=== PATIENT | male | born 1990 | race Caucasian/White ===

== ENCOUNTER 2021-09-29 09:55 | Emergency (ER) | payer OTHER ==
[2021-09-29 10:02] VITALS: BP 123/67; PULSE 82; RESP 18; TEMP 97.8
[2021-09-29] MEDS ORDERED: ORPHENADRINE 30 MG/ML 2 ML VIAL IM STA (10:13)
[2021-09-29] MEDS ORDERED: HYDROmorphone 1 MG/ML 1 ML SYRINGE IM STA (10:14)
[2021-09-29] MEDS ORDERED: KETOROLAC 15 MG/ML 1 ML VIAL IM STA (10:14)
--- NOTE | 2021-09-29 10:17 | ED ---
General Adult HPI - General Chief complaint: Back Pain/Injury Stated complaint: Back Pain Time Seen by Provider: 09/29/21 10:05 Source: patient, family, EMS, RN notes reviewed Mode of arrival: EMS Limitations: no limitations - History of Present Illness Initial comments: Patient is a pleasant 31-year-old male presenting to the emergency Department with complaints of low back pain. Onset of symptoms while walking into [place]. Patient was turning with significant increase in pain. Discomfort is lower back, more in the right side and does radiate down the leg. No incontinence or retention of bowel or bladder. Patient does have history of similar symptoms twice previously and milder symptoms several other times. No loss of sensation. No weakness. - Related Data Home Medications Medication Instructions Recorded Confirmed Dicyclomine [Bentyl] 10 mg PO BID PRN 04/02/16 04/02/16 Ondansetron [Zofran] 4 mg PO Q12HR PRN 04/02/16 04/02/16 Previous Rx's Medication Instructions Recorded Dicyclomine HCl [Bentyl] 20 mg PO QID PRN #20 tab 04/02/16 Cyclobenzaprine [Flexeril] 10 mg PO TID PRN #12 tablet 09/29/21 predniSONE [Deltasone] 20 mg PO BID #10 tab 09/29/21 Allergies Allergy/AdvReac Type Severity Reaction Status Date / Time nickel Allergy Rash/Hives Verified 04/02/16 15:44 Review of Systems ROS Statement: Those systems with pertinent positive or pertinent negative responses have been documented in the HPI. ROS Other: All systems not noted in ROS Statement are negative. Constitutional: Denies: fever Eyes: Denies: eye pain ENT: Denies: ear pain Respiratory: Denies: cough Cardiovascular: Denies: chest pain Endocrine: Denies: fatigue Gastrointestinal: Denies: abdominal pain Genitourinary: Denies: dysuria Musculoskeletal: Reports: as per HPI, back pain Skin: Denies: rash Past Medical History Past Medical History: No Reported History History of Any Multi-Drug Resistant Organisms: None Reported Past Surgical History: No Surgical Hx Reported Past Psychological History: Anxiety, Depression Smoking Status: Former smoker Past Alcohol Use History: None Reported Past Drug Use History: None Reported, Marijuana General Exam Limitations: no limitations General appearance: alert Head exam: Present: normocephalic Eye exam: Present: normal appearance Neck exam: Present: normal inspection Respiratory exam: Present: normal lung sounds bilaterally Cardiovascular Exam: Present: regular rate, normal rhythm GI/Abdominal exam: Present: soft. Absent: tenderness Extremities exam: Present: normal inspection. Absent: tenderness Back exam: Present: tenderness (Right paralumbar) Neurological exam: Present: alert. Absent: motor sensory deficit Expanded Sensory exam: Lower Extremity Light Touch: Normal Motor strength exam: RLE: 5, LLE: 5 Psychiatric exam: Present: normal affect, normal mood Skin exam: Present: normal color Course Vital Signs 09/29/21 09:58 Temperature 97.8 F Pulse Rate 82 Respiratory 18 Rate Blood Pressure 123/67 O2 Sat by Pulse 100 Oximetry Medical Decision Making - Medical Decision Making Patient reevaluated and improved. Reevaluation lower extremity strength and sensation intact. Patient and family updated on results and need for follow-up. Disposition Clinical Impression: Low back pain Disposition: HOME SELF-CARE Condition: Stable Instructions (If sedation given, give patient instructions): Acute Low Back Pain (ED) Additional Instructions: Please do follow-up with primary care physician in the beginning of the week. Return for loss of control of bowel or bladder, leg weakness or loss of sensation, worsening symptoms or other concerns. Prescription since have been sent your pharmacy Prescriptions: predniSONE [Deltasone] 20 mg PO BID #10 tab Cyclobenzaprine [Flexeril] 10 mg PO TID PRN #12 tablet PRN Reason: Pain Is patient prescribed a controlled substance at d/c from ED?: No Referrals: Steffen Kelley MD [Primary Care Provider] - 1-2 days Time of Disposition: 10:58
[2021-09-29] MEDS ORDERED: ACET/COD 300 MG/30 MG STARTER PACK 6 TAB BTL PO STA (11:01)
== END 2021-09-29 11:26 | disposition home or self-care (01) ==
LOC: EC 09:55
DX: M54.50 Low back pain, unspecified (principal); Z87.891 Personal history of nicotine dependence; Z91.09 Other allergy status, other than to drugs and biological substances
CPT/HCPCS: 99283; 96372 ×2; J2360; J1170; J1885

== ENCOUNTER → 2021-11-22 | Outpatient (CLI) | payer BC, OTHER | END | disposition home or self-care (01) | LOC: LABWHC1 11:10 | PROVIDERS: ATTEND Family Medicine | DX: J02.9 Acute pharyngitis, unspecified (principal); R19.7 Diarrhea, unspecified; R51.9 Headache, unspecified; R11.2 Nausea with vomiting, unspecified | CPT/HCPCS: U0003; C9803; U0005 ==